=== PATIENT | female | born 1985 | race Two or more races ===

== ENCOUNTER 2023-09-22 16:04 | Emergency (ER) | payer OTHER ==
[~2023-09-22] VITALS: Ht 154.9 cm; Wt 65.8 kg
[2023-09-22] MEDS ORDERED: FAMOTIDINE/PF 20 MG in 0.9 % SODIUM CHLORIDE 8 ML IV PUSH STA (16:54)
[2023-09-22] MEDS ORDERED: ONDANSETRON HCL 2 MG/ML VIAL IV ONE (17:00)
[2023-09-22] MEDS ORDERED: 0.9 % SODIUM CHLORIDE 1,000 ML IV SCH (17:00)
[2023-09-22] MEDS ORDERED: KETOROLAC TROMETHAMINE 30 MG VIAL IV ONE (17:00)
[2023-09-22 17:19] LABS: HEMATOCRIT 40.8 % (36.0-45.00); HEMOGLOBIN 14.3 g/dL (12.0-15.00); MEAN CORPUSCULAR HEMOGLOBIN 31.8 pg (27.00-32.0); PLATELET COUNT 174 K/uL (150-450); RED BLOOD COUNT 4.49 M/uL (4.00-6.00); RED CELL DISTRIBUTION WIDTH 13.2 % (11.5-14.5)
[2023-09-22 17:34] LABS: PH,URINE 5.5 (5.0-8.0); URINE APPEARANCE Cloudy; URINE BILIRRUBIN Negative (NEGATIVE); URINE BLOOD Negative; URINE COLOR Dark Yellow; URINE GLUCOSE Negative (NEGATIVE); URINE LEUKOCYTE Negative; URINE NITRATE Negative; URINE PROTEIN 30 (NEGATIVE)
[2023-09-22 17:35] LABS: URINE BACTERIA 5367.4 uL (0.0-1933); URINE WBC 11.8 uL (0.0-23.2)
[2023-09-22 17:38] LABS: ALBUMIN 3.8 gm/dL (3.4-5.0); BILIRUBIN TOTAL 0.52 mg/dL (0.3-1.2); CREATININE SERUM 0.84 mg/dL (0.55-1.02); GFR 75.88; GLOBULINA 4.3 G/DL (2.4-3.5); POTASSIUM 3.28 mEq/L (3.5-5.1); TOTAL PROTEIN 8.1 gm/dL (6.4-8.2)
[2023-09-22] MEDS ORDERED: METHYLPREDNISOLONE SOD SUCC 125 MG VIAL IV ONE (18:30)
[2023-09-22] MEDS ORDERED: TUSNEL LIQUID178 ML PO (18:32)
[2023-09-22] MEDS ORDERED: ZITHROMAX500 MG PO (18:32)
[2023-09-22] MEDS ORDERED: ONDANSETRON ODT8 MG PO (18:32)
[2023-09-22] MEDS ORDERED: PEPCID AC20 MG PO (18:32)
== END 2023-09-22 19:14 | disposition home or self-care (01) ==
LOC: ER 16:05
PROVIDERS: General Practice
DX: J10.1 Influenza due to other identified influenza virus with other respiratory manifestations (principal); Z88.2 Allergy status to sulfonamides; Z88.0 Allergy status to penicillin; Z20.822 Contact with and (suspected) exposure to COVID-19